=== PATIENT | male | born 1950 | race Caucasian/White ===

== ENCOUNTER 2018-05-15 07:43 | Day surgery (SDC) | payer OTHER ==
[2018-05-15] MEDS ORDERED: NS 1,000 ML IV ONE (07:45)
[2018-05-15] MEDS ORDERED: DIAZEPAM 5 MG TAB PO ONE (07:45)
[2018-05-15] MEDS ORDERED: FAMOTIDINE 20 MG TAB PO ONE (07:45)
[2018-05-15] MEDS ORDERED: diphenhydrAMINE 25 MG CAP PO ONE ×2 (07:45→08:14)
[2018-05-15] MEDS ORDERED: ASPIRIN EC 325 MG TAB PO ONE ×2 (07:45→08:15)
--- NOTE | 2018-05-15 08:10 | CPEKG ---
Heart Rate: 82 RR Interval: 732 P-R Interval: 180 QRSD Interval: 132 QT Interval: 408 QTC Interval: 477 P [place]: 24 QRS [place]: 21 T Wave [place]: 5 EKG Severity - ABNORMAL ECG - EKG Impression: SINUS RHYTHM EKG Impression: RIGHT BUNDLE BRANCH BLOCK Electronically Signed By: Antwan Parada 17-May-2018 08:33:11
[2018-05-15] MEDS ORDERED: FAMOTIDINE 20 MG TAB ONE (08:14)
[2018-05-15] MEDS ORDERED: DIAZEPAM 5 MG TAB ONE (08:15)
[2018-05-15 08:39] LABS: INR 0.97 (0.83-1.16); PROTIME(PATIENT) 13.1 SEC (12.0-15.0)
[2018-05-15 09:17] LABS: PLATELET COUNT 317 10^3/uL (150-400)
--- NOTE | 2018-05-15 09:21 | PDHPUP ---
History & Physical Update H&P update statement: This history and physical update is based on an assessment of the patient which was completed after admission or registration (within 24 hours), but prior to the surgery/procedure. H&P update: H&P reviewed & patient examined, no change in patient's condition since H&P completed
--- NOTE | 2018-05-15 09:22 | PDPROPOC ---
Sedation Plan of Care Sedation Plan of Care: vital signs stable, mental status noted, patient educated of risks, benefits, alternatives, patient can tolerate sedation ASA Classification: ASA 2 Planned drugs: fentanyl, midazolam Mallampati Score: Class 1 Mallampati Reference Image: Patient passed 3-3-2 rule?: Yes
[2018-05-15] MEDS ORDERED: MIDAZOLAM 2 MG/2 ML VIAL ONE (12:45)
[2018-05-15] MEDS ORDERED: fentaNYL 100 MCG/2 ML INJ ONE (12:45)
[2018-05-15] MEDS ORDERED: LIDOCAINE 1% 300 MG/30 ML SDV ONE (12:45)
[2018-05-15] MEDS ORDERED: IOPAMIDOL (ISOVUE 370) 100 ML BTL IV ONE (12:46)
[2018-05-15] MEDS ORDERED: ATROPINE SULFATE 1 MG/10 ML SYR IVP PRN (13:37)
[2018-05-15] MEDS ORDERED: HYDROCODONE/APAP 5/325 TAB PO PRN (13:37)
[2018-05-15] MEDS ORDERED: ONDANSETRON 4 MG/2 ML VIAL IVP PRN (13:37)
[2018-05-15] MEDS ORDERED: NITROGLYCERIN 0.4 MG BTL SL PRN (13:37)
[2018-05-15] MEDS ORDERED: OXYCODONE/APAP 5/325 TAB PO PRN (13:37)
--- NOTE | 2018-05-15 13:43 | PDDXCAT ---
Diagnostic Cath Note - . Date: 05/15/18 [employer]: Zoila High-risk criteria on non-invasive testing: stress-induced moderate-size multiple perfusion defects - Procedure Access: right groin Procedure: left heart catheterization, coronary angiography, left ventriculogram - Materials Left Heart Cath size: 6F Left Heart Cath materials: standard multipack (JL4, JR4, pigtail) - Findings-Left Heart Catheterization LM: Short, bifurcation into the LAD and LCX vessels. No appreciable luminal irregularities were noted LAD: Medium diameter vessel with two diagonals (D2 is more principal of the two) . Moderate proximal LAD calcification was noted, but no critical luminal irregularities were noted (30% at most) LCX: Medium diameter vessel with three OM branches noted. No luminal irregularities were noted. Mild distal tortuosity was noted. RCA: Small to medium diameter vessel with patent mid stent (no appreciable luminal irregularities or in stent stenosis was noted). Supply to the PD/PL territory (dominance) EDP: 14 mm Hg LVEF: 65% Wall motion: normal wall motion Complications: none Estimated blood loss: <50ml Closure method: Angioseal Assessment: Patient is a 68 y/o male with known history of CAD s/p PCI to the RCA, as well as HTN and HLP without critical CAD noted. Patent stent to the RCA. Normal LVEF with normal wall motion Plan: Aggressive medical management should continue. ASA for life with CAD/PCI history. Would have patient set up for outpatient follow up in one week. Intervention: none
== END 2018-05-15 17:22 | disposition home or self-care (01) ==
LOC: FCATH 07:43
PROVIDERS: ATTEND Internal Medicine Cardiovascular Disease
PROC: B2111ZZ Fluoroscopy of Multiple Coronary Arteries using Low Osmolar Contrast (ICD-10-PCS; principal; 2018-05-15)
PROC: B2151ZZ Fluoroscopy of Left Heart using Low Osmolar Contrast (ICD-10-PCS; principal; 2018-05-15)
PROC: 4A023N7 Measurement of Cardiac Sampling and Pressure, Left Heart, Percutaneous Approach (ICD-10-PCS; principal; 2018-05-15)
DX: R94.39 Abnormal result of other cardiovascular function study (principal); I25.10 Atherosclerotic heart disease of native coronary artery without angina pectoris; Z95.5 Presence of coronary angioplasty implant and graft; I10 Essential (primary) hypertension; E78.5 Hyperlipidemia, unspecified; I47.1 Supraventricular tachycardia; E66.09 Other obesity due to excess calories
CPT/HCPCS: C1760; J1644; J2250; J3010; Q9967

== ENCOUNTER → 2018-12-20 | Outpatient (CLI) | payer OTHER | LOC: FIMAGING 12:17 | PROVIDERS: ATTEND Family Medicine Sports Medicine | DX: R10.12 Left upper quadrant pain (principal) ==